=== PATIENT | female | born 1940 | race Caucasian/White ===

== ENCOUNTER → 2023-06-26 07:41 | Outpatient (REF) | payer MEDICARE, OTHER, SELFPAY ==
[2023-06-26 09:52] LABS: % Basophils 0.6 % (0-2); % Eosinophils 3.5 % (0-6); % Immature Granulocytes 0.4 % (0-0.5); % Lymphocytes 37.8 % (20.5-51.1); % Monocytes 7.1 % (1.7-9.3); % Neutrophils 50.6 % (42.2-75.2); Absolute Basophils 0.1 10^3/uL (0-0.2); Absolute Eosinophils 0.3 10^3/uL (0-0.7); Absolute Monocytes 0.6 10^3/uL (0.1-0.6); Hematocrit 38.9 % (37.0-47.0); Hemoglobin 12.5 g/dL (12.0-16.0); Mean Corp Hgb Conc. 32.1 g/dL (33.0-37.0); Mean Corpuscular Hgb 28.3 pg (27.0-31.0); Mean Platelet Volume 10.8 fL (7.4-10.4); Nucleated Red Blood Cells % 0 %; Platelet Count 280 10^3/uL (130-400); Red Blood Cell Count 4.42 10^6/uL (4.20-5.40); Red Cell Dist. Width 13.9 % (11.5-14.5); White Blood Cell Count 7.8 10^3/uL (4.8-10.8)
[2023-06-26 10:18] LABS: ALT (SGPT) 15 U/L (0-35); AST (SGOT) 20 U/L (14-36); Albumin 3.8 g/dl (3.5-5.0); Alkaline Phosphatase 77 U/L (38-126); Blood Urea Nitrogen 24 mg/dl (7-17); Calcium 9.4 mg/dl (8.4-10.2); Carbon Dioxide 25 mmol/L (22-30); Chloride 107 mmol/L (98-107); Glucose 102 mg/dl (70-99); HDL Cholesterol 50 mg/dl; LDL Cholesterol, Calculated 84 mg/dl; Potassium 4.4 mmol/L (3.5-5.1); Sodium 137 mmol/L (135-145); Total Bilirubin 0.5 mg/dl (0.2-1.3); Total Cholesterol 157 mg/dl (50-199); Total Protein 6.4 g/dl (6.3-8.2); Triglyceride 119 mg/dl (10-149); Very Low Density Lipoprotein 23 mg/dl (0-30); eGFR > 60.00
[2023-06-26 10:24] LABS: NT-proBNP 53.3 pg/ml
[2023-06-26 10:44] LABS: TSH Reflex To Free T4 2.85 uIU/ml (0.47-4.68)
[2023-06-26 11:58] LABS: Glycohemoglobin (HgbA1c) 5.8 % (4.0-5.6)
== END ==
LOC: HWLAB 07:41
PROVIDERS: ATTENDING PHYSICIAN Internal Medicine Cardiovascular Disease; FAMILY PHYSICIAN Internal Medicine
DX: I10 Essential (primary) hypertension (principal); I25.9 Chronic ischemic heart disease, unspecified; E78.00 Pure hypercholesterolemia, unspecified
CPT/HCPCS: 36415; 80053; 80061; 83036; 83735; 83880; 84443; 85025

== ENCOUNTER → 2023-08-10 07:15 | Outpatient (REF) | payer MEDICARE, OTHER, SELFPAY | LOC: MRI 3T 07:15 | PROVIDERS: ATTENDING PHYSICIAN Specialist; FAMILY PHYSICIAN Internal Medicine | DX: G93.41 Metabolic encephalopathy (principal); U09.9 Post COVID-19 condition, unspecified | CPT/HCPCS: 70551 ==

== ENCOUNTER 2023-08-31 00:23 | Emergency (ER) | payer MEDICARE, OTHER, SELFPAY ==
[2023-08-31] VITALS (8 sets, daily range): BP systolic 107–158; BP diastolic 67–132; PULSE 88–96; BMI 25.4
--- NOTE | 2023-08-31 01:10 | ED.GENMED ---
History of Present Illness
<PATRICIA Castillo - Last Filed: 08/31/23 01:41>
General
Chief Complaint: Fainting/Passed Out
Source: patient and spouse
Exam Limitations: none
Time Seen by Provider: 08/31/23 00:39
Travel History
Have you had any contact with someone who has COVID-19?: No
Do you have any symptoms of coronavirus? Fever > 100 degrees, chills, cough, shortness of breath, sore throat, loss of taste or smell, muscle aches, or headache?: No
History of Present Illness
History of Present Illness:
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 She reports she had three episodes of loose stools before her fall. She then
went upstairs to go to the bathroom. Her states he found her on the floor after hearing a thud. Pt does not believe she hit her head. She states she fell backwards. On Monday, patient started to experience nausea from what she thought was
her medications, Acyclovir and Prednisone. Pt's doctor told her to stop the medications. Pt's states he also had her stop the Plavix.
Currently on Losartan, Simvastatin, and Tamsulosin (bladder drop).
Denies CP and SOB. Denies eye pain or changes in visual acuity.
Past History
<PATRICIA Castillo - Last Filed: 08/31/23 01:41>
Past History
ED Past Medical History: HTN, Hypercholesterolemia and Other (Osteoporosis)
ED Past Surgical History: Cholecystectomy, Gynecological and Tonsilectomy
Social History
Tobacco: Non-smoker
Alcohol: None
Personal:
Living: with family
Review of Systems
<PATRICIA Castillo - Last Filed: 08/31/23 01:41>
Review of Systems
Constitutional: Reports no symptoms
EENT: Reports no symptoms
Respiratory: Reports no symptoms
Cardiac: Reports no symptoms
ABD/GI: Reports no symptoms
: Reports no symptoms
Skin: Reports rash (Shingles outbreak)
Phy Exam
<Lyly Cortes [facility] Last Filed: 08/31/23 01:41>
Physical Exam
Physical Exam:
Normal S1 and S2
Breath sounds are clear and equal B/L
Shingles rash located on the upper back, left side, and underneath her left breast
General Physical Exam
General Presentation: well appearing
General age: appears stated age
General Skin: warm
General Habitus: normal
General Mental: alert
Cardiovascular Exam
Cardiovascular Exam: regular rate/rhythm
Pulmonary Exam
Pulmonary Exam: lungs clear and no respiratory distress
Neurological Exam
Neurological Exam: alert
Skin Exam
Skin Exam: redness
Course
<Lyly Cortes [facility] Last Filed: 08/31/23 01:41>
Orders/Labs/Results
Orders:
Orders
08/31/23 00:31
Electrocardiogram (*1) Urgent
Reason for Study: Syncope
EKG- Treatment ONCE
08/31/23 00:55
Complete Blood Count/With Diff Urgent
Comprehensive Metabolic Panel Urgent
Magnesium Urgent
Troponin I Urgent
08/31/23 01:15
CT Head W/o Iv Contrast Urgent
Comment:
Reason For Exam: syncope-(?)head injury, on plavix
08/31/23 01:42
KCl 20 Meq/0.9%Sodchl 1000 ml [NSS with KCL 20 MEQ] 20 meq in 1,000 ml IV 500 mls/hr
Abnormal Lab Results
08/31/23
00:55
WBC 11.4 H 10^3/uL
(4.8-10.8)
Absolute Neuts (auto) 7.0 H 10^3/uL
(1.4-6.5)
Absolute Monos (auto) 0.9 H 10^3/uL
(0.1-0.6)
Potassium 3.3 L mmol/L
(3.5-5.1)
BUN 20 H mg/dl
(7-17)
Creatinine 1.2 H mg/dL
(0.6-1.0)
Glucose 118 H mg/dl
(70-99)
08/31/23 00:55
08/31/23 00:55
Vital Signs
Initial and Last Documented VS:
Initial Vital Signs
Temp Pulse Resp BP Pulse Ox
98.1 F 77 18 107/67 99
08/31/23 00:26 08/31/23 00:26 08/31/23 00:26 08/31/23 00:26 08/31/23 00:26
Last Documented Vital Signs
Temp Pulse Resp BP Pulse Ox
98.1 F 96 29 146/76 98
08/31/23 00:26 08/31/23 04:15 08/31/23 04:15 08/31/23 04:15 08/31/23 04:13
<Anu Gandara, DO - Last Filed: 08/31/23 05:06>
Orders/Labs/Results
Orders:
Orders
08/31/23 00:31
Electrocardiogram (*1) Urgent
Reason for Study: Syncope
EKG- Treatment ONCE
08/31/23 00:55
Complete Blood Count/With Diff Urgent
Comprehensive Metabolic Panel Urgent
Magnesium Urgent
Troponin I Urgent
08/31/23 01:15
CT Head W/o Iv Contrast Urgent
Comment:
Reason For Exam: syncope-(?)head injury, on plavix
08/31/23 01:42
KCl 20 Meq/0.9%Sodchl 1000 ml [NSS with KCL 20 MEQ] 20 meq in 1,000 ml IV 500 mls/hr
Abnormal Lab Results
08/31/23
00:55
WBC 11.4 H 10^3/uL
(4.8-10.8)
Absolute Neuts (auto) 7.0 H 10^3/uL
(1.4-6.5)
Absolute Monos (auto) 0.9 H 10^3/uL
(0.1-0.6)
Potassium 3.3 L mmol/L
(3.5-5.1)
BUN 20 H mg/dl
(7-17)
Creatinine 1.2 H mg/dL
(0.6-1.0)
Glucose 118 H mg/dl
(70-99)
08/31/23 00:55
08/31/23 00:55
Vital Signs
Initial and Last Documented VS:
Initial Vital Signs
Temp Pulse Resp BP Pulse Ox
98.1 F 77 18 107/67 99
08/31/23 00:26 08/31/23 00:26 08/31/23 00:26 08/31/23 00:26 08/31/23 00:26
Last Documented Vital Signs
Temp Pulse Resp BP Pulse Ox
98.1 F 96 29 146/76 98
08/31/23 00:26 08/31/23 04:15 08/31/23 04:15 08/31/23 04:15 08/31/23 04:13
Joycelt;PATRICIA Castillo - Last Filed: 08/31/23 01:41>
MDM/Problems Addressed
Differential Diagnosis Includes:
Concussion, Orthostatic hypotension, Syncope (Vasovagal)
MDM/Problems Addressed:
Fall at 10:30 p.m. on 08/29
Chronic conditions affecting care: HTN
<PATRICIA Castillo - Last Filed: 08/31/23 01:41>
*Critical Care Note
Total Time (30-74mins, 75-104mins- exclusive of procedures): Not Applicable
<Anu Gandara DO - Last Filed: 08/31/23 05:06>
*Radiology
Radiology exam reviewed: radiology read reviewed
*Pulse Oximetry
Patient hypoxic: no
*EKG
Interpreted by ED Provider?: Yes
Interpretation: normal
Comparison EKG: no changes (Unchanged from previous August 2022)
Rate: normal
Rhythm: sinus
Paicines: left axis deviation
Interval: long QT (Borderline long QT)
QRS Pattern: normal QRS
Ischemia: no ischemia
*Radiator Mechanic Interpretation
Rate: normal
Interpretation: normal
Rhythm: sinus
ED Attending Note
<PATRICIA Castillo - Last Filed: 08/31/23 01:41>
-
Portions of this chart may have been created with voice recognition software.� Occasional wrong word or��sound alike� substitutions may have occurred due to the inherent limitations of voice recognition software.
<Anu Gandara DO - Last Filed: 08/31/23 05:06>
ED Attending Note
Patient seen and examined by attending physician: Yes
I performed the substantive portion of visit, reviewed & personally made and approve the management plan that is documented in note by myself or JNUI.: Yes
I performed a history and physical exam of patient and discussed management with resident, I reviewed resident's note and agree with documented findings and plan of care.: Yes
ED Attending Note:
This is an 82-year-old woman who resides at home with her . She was diagnosed with shingles left scapular truncal region last Mignon, Malini 4 and was started on Valtrex and prednisone at that time. On August 25 however she developed
abdominal discomfort, nausea and thus Valtrex and prednisone were discontinued on that day. She continued with some nausea and has had poor oral intake over the past several days but no vomiting. Discomfort from shingles has markedly improved.
Tonight however she passed 3 nonbloody loose stools and after the last episode she admits to feeling lightheaded, tunnel vision and proceeded to pass out in the bathroom. The heard a thud and upon investigating found his lying on the
bathroom floor, awake but mildly confused. Confusion quickly abated and he brought her to the ED for further evaluation. She denies injury, denies headache, denies chest pain or palpitations, denies neck nor back pain. No further episodes of
diarrhea and currently denies abdominal pain and no further nausea as well.
She is chronically maintained on Plavix. stopped the Plavix temporarily on Monday along with stopping Valtrex and prednisone due to her upset stomach.
GENERAL: 82-year-old woman appears somewhat younger than stated age, bright and alert, pleasant, appears in no acute distress. is accompanying.
EYE: Head is normocephalic, atraumatic, pupils equal and reactive. anicteric
NECK: Supple, nontender, no meningismus, no midline bony tenderness, no significant adenopathy.
ENT: posterior pharynx is clear, oral mucosa is minimally dry. TM clear b/l, nares patent.
CARDIAC: Regular rate and rhythm. no murmur. No chest wall tenderness.
LUNGS: Clear breath sounds bilaterally, no acute respiratory distress, no wheezes/rales/rhonchi
ABDOMEN: Soft, nondistended, without focal tenderness, no r/g, no cvat. normoactive BS.
NEUROLOGICAL: Alert and oriented x3, no focal neuro deficits.
SKIN: Warm and dry, normal color, skin intact. There is a minimally erythematous dry, minimally crusted rash left lateral scapular region.
MUSCULOSKELETAL: No C/C/E. peripheral pulses are full and equal b/l. No palpable tenderness.
PSYCH: Normal and appropriate interaction.
History and exam most consistent with vasovagal syncope. With poor oral intake over the past several days concern for dehydration/acute kidney injury, electrolyte abnormality.
Other consideration is cardiac arrhythmia.
As patient suffered syncopal event, concern for occult head injury, maintained on Plavix, thus will check CT of the head.
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
EKG shows normal sinus rhythm, left axis deviation, borderline long QT, overall similar and unchanged from previous EKG August 2022.
Labs show mildly elevated white blood cell count of 11.4, normal H&H, moderate dehydration with creatinine of 1.2 which has trended up from previous of 0.9 just 2 months ago. Mild hypokalemia with potassium of 3.3. Troponin is negative.
Will initiate IV normal saline with IV potassium.
Will encourage oral fluids.
After IV fluids infused will plan for orthostatic vital signs.
CT of the head is unremarkable.
Monitor continues to show normal sinus rhythm without ectopy nor arrhythmia.
08/31/2023 0503 AM
Patient continues to feel well.
She has had no return of diarrhea, no abdominal pain, no nausea and tolerating oral fluids.
Orthostatic vital signs are negative.
Discharged home with recommendation to stay well-hydrated on a daily basis. Limit diet to clear liquids, bland foods.
Prompt follow-up with PCP for recheck.
Discharge Plan
Departure
Patient Disposition: Home (Routine Discharge)
Date of Disposition: 08/31/23
Time of Disposition: 05:01
Patient with high blood pressure during this ER visit?: No
Condition: Good
Discharge Problem:
Syncope, vasovagal, Acute dehydration, Acute hypokalemia
Instructions: Syncope (Fainting) (DC), Diarrhea, Adult ED, Clear Liquid Diet
Prescriptions:
No Action
losartan 50 MG tablet
50 mg PO DAILY
simvastatin 20 MG tablet
20 mg PO DAILY
aspirin 81 MG tablet,chewable
1 tab PO DAILY
Referrals:
UNKNOWN - PT DOES,NOT KNOW [Family Provider] -
Narendra Vences, DO [Non-Admitting Privileges] - Call in 1-3 days for appt
Interventions
Interventions:
*Risk Screen - Suicide Last Done: 08/31/23 00:52
*General Assessment Last Done: 08/31/23 00:26
*Neglect/Abuse Screening Last Done: 08/31/23 00:52
ED- Fall Risk Assessment Last Done: 08/31/23 00:52
*ED COVID-19 Vaccine History Last Done: 08/31/23 00:55
ED- Cardiac Assessment Last Done: 08/31/23 00:52
ED- Neurological Assessment Last Done: 08/31/23 00:52
Discharge Date and Time
Print Language: [place]
[2023-08-31 01:16] LABS: % Basophils 0.4 % (0-2); % Eosinophils 1.8 % (0-6); % Immature Granulocytes 0.4 % (0-0.5); % Lymphocytes 28.1 % (20.5-51.1); % Monocytes 7.8 % (1.7-9.3); % Neutrophils 61.5 % (42.2-75.2); Absolute Eosinophils 0.2 10^3/uL (0-0.7); Absolute Lymphocytes 3.2 10^3/uL (1.2-3.4); Absolute Monocytes 0.9 10^3/uL (0.1-0.6); Hemoglobin 12.9 g/dL (12.0-16.0); Mean Corp Hgb Conc. 33.9 g/dL (33.0-37.0); Mean Corpuscular Hgb 28.5 pg (27.0-31.0); Mean Corpuscular Volume 83.9 fL (81.0-99.0); Nucleated Red Blood Cells % 0 %; Platelet Count 346 10^3/uL (130-400); Red Blood Cell Count 4.53 10^6/uL (4.20-5.40); Red Cell Dist. Width 14.4 % (11.5-14.5); White Blood Cell Count 11.4 10^3/uL (4.8-10.8)
[2023-08-31 01:31] LABS: ALT (SGPT) 17 U/L (0-35); AST (SGOT) 21 U/L (14-36); Albumin 3.6 g/dl (3.5-5.0); Alkaline Phosphatase 97 U/L (38-126); Blood Urea Nitrogen 20 mg/dl (7-17); Calcium 9.3 mg/dl (8.4-10.2); Carbon Dioxide 26 mmol/L (22-30); Chloride 104 mmol/L (98-107); Estimated Creatinine Clearance 27 ml/min; Glucose 118 mg/dl (70-99); Magnesium 2.1 mg/dl (1.6-2.3); Potassium 3.3 mmol/L (3.5-5.1); Sodium 139 mmol/L (135-145); Total Bilirubin 0.5 mg/dl (0.2-1.3); Total Protein 6.5 g/dl (6.3-8.2); eGFR 45.76
[2023-08-31 01:45] LABS: Troponin I < 0.012 ng/ml
[2023-08-31] MEDS: NSS with KCL 20 MEQ 1000 IV (02:07)
== END 2023-08-31 05:14 | disposition home or self-care (01) ==
LOC: EMR 00:23
PROVIDERS: EMERGENCY PHYSICIAN Emergency Medicine
DX: R55 Syncope and collapse (principal); E86.0 Dehydration; E87.6 Hypokalemia; I10 Essential (primary) hypertension; E78.00 Pure hypercholesterolemia, unspecified; M81.0 Age-related osteoporosis without current pathological fracture; Z79.02 Long term (current) use of antithrombotics/antiplatelets; Z86.16 Personal history of COVID-19; Z90.49 Acquired absence of other specified parts of digestive tract
CPT/HCPCS: 99284; 70450; 80053; 83735; 84484; 85025; 93005

== ENCOUNTER → 2023-11-17 17:16 | Emergency (ER) | payer MEDICARE, OTHER, SELFPAY ==
[2023-11-17] VITALS (7 sets, daily range): BP systolic 143–165; BP diastolic 65–76; BMI 27.7
[2023-11-17 18:16] LABS: % Basophils 0.6 % (0-2); % Eosinophils 1.2 % (0-6); % Immature Granulocytes 0.7 % (0-0.5); % Lymphocytes 24.9 % (20.5-51.1); % Monocytes 6.2 % (1.7-9.3); % Neutrophils 66.4 % (42.2-75.2); Absolute Basophils 0.1 10^3/uL (0-0.2); Absolute Eosinophils 0.1 10^3/uL (0-0.7); Absolute Immature Granulocytes 0.1 10^3/uL (0-0.05); Absolute Lymphocytes 2.1 10^3/uL (1.2-3.4); Absolute Monocytes 0.5 10^3/uL (0.1-0.6); Absolute Neutrophils 5.6 10^3/uL (1.4-6.5); Hematocrit 37.8 % (37.0-47.0); Hemoglobin 12.6 g/dL (12.0-16.0); Mean Corp Hgb Conc. 33.3 g/dL (33.0-37.0); Mean Corpuscular Hgb 28.9 pg (27.0-31.0); Mean Corpuscular Volume 86.7 fL (81.0-99.0); Mean Platelet Volume 10.5 fL (7.4-10.4); Nucleated Red Blood Cells % 0 %; Platelet Count 272 10^3/uL (130-400); Red Blood Cell Count 4.36 10^6/uL (4.20-5.40); Red Cell Dist. Width 14.4 % (11.5-14.5); White Blood Cell Count 8.4 10^3/uL (4.8-10.8)
[2023-11-17 18:22] LABS: ALT (SGPT) 16 U/L (0-35); AST (SGOT) 30 U/L (14-36); Albumin 4.2 g/dl (3.5-5.0); Alkaline Phosphatase 82 U/L (38-126); Blood Urea Nitrogen 17 mg/dl (7-17); Calcium 9.3 mg/dl (8.4-10.2); Carbon Dioxide 25 mmol/L (22-30); Chloride 106 mmol/L (98-107); Glucose 117 mg/dl (70-99); Potassium 4.1 mmol/L (3.5-5.1); Sodium 142 mmol/L (135-145); Total Bilirubin 0.6 mg/dl (0.2-1.3); Total Protein 6.7 g/dl (6.3-8.2); eGFR > 60.00
[2023-11-17 18:28] LABS: Troponin I < 0.012 ng/ml
--- NOTE | 2023-11-17 18:34 | ED.GENMED ---
History of Present Illness
General
Chief Complaint: Fall
Source: patient and spouse
Time Seen by Provider: 11/17/23 18:17
History of Present Illness
History of Present Illness:
This patient is an 83-year-old female who has had some recent memory issues. She was started on Plavix after some MRI findings suggesting the possibility of TIA/stroke. Today, she had a fall, landing backwards and causing a laceration to the
posterior occiput. She does not really recall the fall but she denies having any dyspnea, palpitations, chest pain, headache, dizziness, fever, chills, nausea, vomiting. Since the fall, she notes mild lower back discomfort. She is unaware when
her last tetanus was. Her who is in the house at the time said that he heard a loud noise and when he ran over to her she was on the floor, awake but 'foggy'. As a result he presumed that she lost consciousness but did not see her
unconscious. Patient has little memory of the event.
Past History
Past History
ED Past Medical History: HTN, Hypercholesterolemia and Other (Osteoporosis)
ED Past Surgical History: Cholecystectomy, Gynecological and Tonsilectomy
Social History
Tobacco: Non-smoker
Alcohol: None
Personal:
Living: with family
Phy Exam
Physical Exam
Physical Exam:
GENERAL: Alert , in no apparent distress
EYE: pupils equal and reactive, no nystagmus, no photophobia, EOMI
NECK: Supple, no significant adenopathy, no midline tenderness.
ENT: o/p clr, mmm, no signs of head or facial injury with the exception of posterior occiput laceration, no gomez, no raccoon.
CARDIAC: Regular rate and rhythm .
LUNGS: Equal breath sounds bilaterally, no acute respiratory distress, no rales or rhonchi, occasional wheezing noted
ABDOMEN: Soft, without focal tenderness, no r/g, no cvat
NEUROLOGICAL: Alert and oriented, no focal neuro deficits, [id number] normal, cranial nerves II through XII intact, motor 5 out of 5, sensory
SKIN: Warm and dry, skin intact with the exception of superficial linear laceration noted the posterior occiput measuring approximately 3 cm.
MUSCULOSKELETAL: No edema, well perfused.
PSYCH: Normal and appropriate interaction.
Course
Orders/Labs/Results
Orders:
Orders
11/17/23 17:35
Electrocardiogram (*1) Urgent
Reason for Study: Vertigo / Dizzy
CT Head W/o Iv Contrast Urgent
Comment:
Reason For Exam: fall
EKG- Treatment ONCE
11/17/23 17:44
Complete Blood Count/With Diff Urgent
Comprehensive Metabolic Panel Urgent
Troponin I Urgent
11/17/23 18:34
Lidocaine/Epinephrine/Tetracai [Let Topical Anesthetic Gel] 3 ml TOPICAL NOW STA
Tetanus/Diphth/Acelpertussis [Adacel] 0.5 ml IM .ONCE ONE
11/17/23 18:37
LS Spine Complete, 4 View [CR Lumbar Spine Comp Min 4 Vw*] Urgent
Comment:
Reason For Exam: fall
11/17/23 20:03
Ribs, Right 3 View W/PA Chest [CR Ribs-right 3 Vw W/pa Chest*] Urgent
Comment:
Reason For Exam: fall
11/17/23 20:10
Oxycodone/Acetaminophen [Percocet 5/325] 1 tablet .ROUTE .STK-MED ONE
11/17/23 20:13
Oxycodone/Acetaminophen [Percocet 5/325] 1 tablet PO NOW STA
Oxycodone/Acetaminophen [Percocet 5/325] 1 tablet PO NOW STA
Abnormal Lab Results
11/17/23
17:44
MPV 10.5 H fL
(7.4-10.4)
Abs Immat Gran (auto) 0.1 H 10^3/uL
(0-0.05)
Immature Gran % 0.7 H %
(0-0.5)
Glucose 117 H mg/dl
(70-99)
11/17/23 17:44
11/17/23 17:44
Vital Signs
Initial and Last Documented VS:
Initial Vital Signs
Temp Pulse Resp BP Pulse Ox
98.1 F 68 16 143/75 99
11/17/23 17:32 11/17/23 17:32 11/17/23 17:32 11/17/23 17:32 11/17/23 17:32
Last Documented Vital Signs
Temp Pulse Resp BP Pulse Ox
98.2 F 72 20 149/65 96
11/17/23 19:15 11/17/23 21:55 11/17/23 21:55 11/17/23 21:55 11/17/23 21:55
Procedures
Laceration Closure
Head:
Status of Wound: clean
Size of Wound in cm: 3
Description of Wound Edges: sharp
Preparation: cleaned with saline
Anesthesia: 1% Lidocaine with epi and Topical-LET
Revision/Debridement: routine- no revision
Wound exploration: explored to base- no FB
Type of Closure: single layer closure
Skin Closure Material: skin angelique
Number of sutures: 5
*Critical Care Note
Total Time (30-74mins, 75-104mins- exclusive of procedures): Not Applicable
Update Note
Update Note:
Patient presents to the Emergency Department with
Number and Complexity of Problems Addressed at the Encounter
� Chronic conditions affecting care:
� Acute Exacerbation and/or Progression of Chronic Illness:
� Differential Diagnosis includes:
Amount and/or Complexity of Data to be Reviewed and Analyzed
� I performed an independent evaluation of and my interpretation is:
EKG: Read by me, normal sinus rhythm, normal rate, normal axis, no ischemia
CT:There are no acute intracranial abnormalities.
There is mild diffuse cortical atrophy with mild nonspecific white matter changes as described above.
Xrays: Chest x-ray no fracture noted no pneumothorax. Lumbar spine L1 compression fracture noted
Laboratory Studies: Generally unremarkable
Other:
� Review of other/old records reveals: mri july 2023 Moderate diffuse cerebral and cerebellar volume loss.
2. 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
3. 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
4. 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
� Clinical information was obtained by an independent historian:
� Prescriptions/Medications Considered but not given:
� Further testing considered but not performed:
Risk of Complications and/or Morbidity or Mortality of Patient Management
� Social determinants of health affecting care:
� Discussion with other providers (PCP, Hospitalists, Consultants, etc):
� Escalation of care including admission/observation vs risk of discharge considered: Pt now reporting pain R post costal area, ttp, no bruising, no crepitus. Xray ordered. In meantime, wound cleaned/ irrigated, anesthetized,
angelique placed.
9:15 PM patient smiling, no new complaints, feels comfortable going home pain well-managed. We will ambulate patient in the emergency department. Discussed with her and her importance of follow-up, her compression fracture noted on x-ray
here, staple removal, etc.
ED Attending Note
-
Portions of this chart may have been created with voice recognition software.� Occasional wrong word or��sound alike� substitutions may have occurred due to the inherent limitations of voice recognition software.
Discharge Plan
Departure
Patient Disposition: Home (Routine Discharge)
Date of Disposition: 11/17/23
Time of Disposition: 21:16
Patient with high blood pressure during this ER visit?: Yes
Condition: Good
Discharge Problem:
Laceration, Fall
Instructions: Concussion, Adult (DC), Laceration Repair With [place] (DC), BLOOD PRESSURE
Prescriptions:
No Action
losartan 50 MG tablet
50 mg PO DAILY
simvastatin 20 MG tablet
20 mg PO DAILY
Plavix
75 mg PO DAILY
Referrals:
UNKNOWN - PT DOES,NOT KNOW [Unknown Provider] -
Activity Restrictions/Additional Instructions:
PLEASE SEE YOUR DOCTOR IN 7-10 DAYS FOR STAPLE REMOVAL. IF YOU DEVELOP SEVERE HEADACHE, VOMITING, FEVER, CHILLS, TROUBLE BREATHING, DIZZINESS, OR OTHER WORRISOME SIGNS, GO TO THE ER IMMEDIATELY!
Interventions
Interventions:
*Risk Screen - Suicide Last Done: 11/17/23 17:32
*General Assessment Last Done: 11/17/23 17:32
*Neglect/Abuse Screening Last Done: 11/17/23 17:32
ED- Fall Risk Assessment Last Done: 11/17/23 19:09
*ED COVID-19 Vaccine History Last Done: 11/17/23 17:32
ED-Musculoskeletal Assessment Last Done: 11/17/23 19:09
ED- Neurological Assessment Last Done: 11/17/23 19:09
ED-Skin Assessment Last Done: 11/17/23 19:12
Discharge Date and Time
Print Language: [place]
[2023-11-17] MEDS: ADACEL 0.5 ML IM (19:17)
[2023-11-17] MEDS: LET TOPICAL ANESTHETIC GEL 3 ML TOPICAL (19:20)
[2023-11-17] MEDS: PERCOCET 5/325 1 TABLET PO (20:14)
== END | disposition home or self-care (01) ==
LOC: EMR 17:16
PROVIDERS: Physician Assistant; EMERGENCY PHYSICIAN Emergency Medicine; FAMILY PHYSICIAN Internal Medicine
DX: S01.81XA Laceration without foreign body of other part of head, initial encounter (principal); W19.XXXA Unspecified fall, initial encounter; Z23 Encounter for immunization; I10 Essential (primary) hypertension; E78.00 Pure hypercholesterolemia, unspecified; M81.0 Age-related osteoporosis without current pathological fracture; Z79.02 Long term (current) use of antithrombotics/antiplatelets
CPT/HCPCS: 99284; 12013; 90471; 70450; 71101; 72110; 80053; 84484; 85025; 90715; 93005

== ENCOUNTER → 2024-02-21 07:40 | Outpatient (REF) | payer MEDICARE, OTHER, SELFPAY ==
[2024-02-21 09:42] LABS: % Basophils 0.7 % (0-2); % Eosinophils 1.5 % (0-6); % Immature Granulocytes 0.3 % (0-0.5); % Lymphocytes 28.2 % (20.5-51.1); % Monocytes 6.3 % (1.7-9.3); Absolute Basophils 0.1 10^3/uL (0-0.2); Absolute Eosinophils 0.1 10^3/uL (0-0.7); Absolute Lymphocytes 2.4 10^3/uL (1.2-3.4); Absolute Monocytes 0.5 10^3/uL (0.1-0.6); Absolute Neutrophils 5.4 10^3/uL (1.4-6.5); Hematocrit 39.6 % (37.0-47.0); Hemoglobin 12.7 g/dL (12.0-16.0); Mean Corp Hgb Conc. 32.1 g/dL (33.0-37.0); Mean Corpuscular Hgb 28.7 pg (27.0-31.0); Mean Corpuscular Volume 89.4 fL (81.0-99.0); Mean Platelet Volume 10.8 fL (7.4-10.4); Nucleated Red Blood Cells % 0 %; Platelet Count 269 10^3/uL (130-400); Red Blood Cell Count 4.43 10^6/uL (4.20-5.40); Red Cell Dist. Width 13.7 % (11.5-14.5); White Blood Cell Count 8.6 10^3/uL (4.8-10.8)
[2024-02-21 10:01] LABS: TSH Reflex To Free T4 6.05 uIU/ml (0.47-4.68)
[2024-02-21 10:06] LABS: ALT (SGPT) 14 U/L (0-35); AST (SGOT) 20 U/L (14-36); Albumin 3.9 g/dl (3.5-5.0); Alkaline Phosphatase 72 U/L (38-126); Blood Urea Nitrogen 18 mg/dl (7-17); Calcium 9.2 mg/dl (8.4-10.2); Carbon Dioxide 28 mmol/L (22-30); Chloride 106 mmol/L (98-107); Glucose 101 mg/dl (70-99); HDL Cholesterol 53 mg/dl; LDL Cholesterol, Calculated 79 mg/dl; Magnesium 2.2 mg/dl (1.6-2.3); Potassium 4.1 mmol/L (3.5-5.1); Sodium 143 mmol/L (135-145); Total Bilirubin 0.5 mg/dl (0.2-1.3); Total Cholesterol 153 mg/dl (50-199); Total Protein 6.4 g/dl (6.3-8.2); Triglyceride 105 mg/dl (10-149); Very Low Density Lipoprotein 21 mg/dl (0-30); eGFR > 60.00
[2024-02-21 10:32] LABS: Free T4 0.79 ng/dl (0.78-2.19)
[2024-02-21 11:56] LABS: Glycohemoglobin (HgbA1c) 5.8 % (4.0-5.6)
== END ==
LOC: HWLAB 07:40
PROVIDERS: ATTENDING PHYSICIAN Internal Medicine Cardiovascular Disease; FAMILY PHYSICIAN Internal Medicine
DX: R53.83 Other fatigue (principal); E78.5 Hyperlipidemia, unspecified; E74.39 Other disorders of intestinal carbohydrate absorption; E03.9 Hypothyroidism, unspecified; R73.03 Prediabetes
CPT/HCPCS: 36415; 80053; 80061; 83036; 83735; 84439; 84443; 85025

== ENCOUNTER → 2024-05-15 10:30 | Outpatient (REF) | payer MEDICARE, OTHER, SELFPAY | LOC: HWRAD 10:30 | PROVIDERS: ATTENDING PHYSICIAN Nurse Practitioner Family; FAMILY PHYSICIAN Internal Medicine | DX: R05.1 Acute cough (principal); R09.89 Other specified symptoms and signs involving the circulatory and respiratory systems | CPT/HCPCS: 71046 ==

== ENCOUNTER 2024-05-15 20:15 | Observation (INO) | payer MEDICARE, OTHER, SELFPAY ==
[2024-05-15] VITALS (7 sets, daily range): BP systolic 111–167; BP diastolic 49–83; BMI 25.8
--- NOTE | 2024-05-15 15:53 | ED.GENMED ---
ED Provider Triage
<Stephen Koch PA-C - Last Filed: 05/15/24 15:54>
-
Patient seen by provider in Triage?: Seen in Triage
Attestation: A medical screening examination has been initiated by a qualified medical provider. Based on the assessment performed at this time, it has been determined that an emergent medical condition may exist and the patient has been informed
that further medical evaluation and possible additional diagnostic testing may be needed.
HPI: 83-year-old female presents with complaints of generalized weakness. She was tested positive for influenza at her family doctor's office 6 days ago. She was also started on Zithromax at that point. She noted increased cough. Family doctor
sent her x-ray which she had as an outpatient today. Chest x-ray shows possible left lower lobe pneumonia. Family doctor also added and cefuroxime which she took her first dose of this morning then vomited. Currently her complaint is generalized
weakness. She denies abdominal pain. X-ray from this morning is read as possible left lower lobe pneumonia. Labs ordered
GENERAL: Alert , in no apparent distress
EYE: No visual abnormalities.
NECK: Trachea midline
ENT: No visible abnormalities.
LUNGS: No acute respiratory distress
NEUROLOGICAL: Alert and oriented
SKIN: Skin intact. No visible changes.
MUSCULOSKELETAL: Moving extremities normally
PSYCH: Normal and appropriate interaction.
This is a medical evaluation conducted in person to initiate diagnostic evaluation and provide initial therapeutics. Please see further documentation by the treating clinician.
History of Present Illness
<Stephen Koch PA-C - Last Filed: 05/15/24 15:54>
General
Chief Complaint: Weakness
Time Seen by Provider: 05/15/24 17:36
<Juve Vasquez DO - Last Filed: 05/15/24 18:21>
General
Source: patient, spouse and family
Exam Limitations: none
Nursing documentation reviewed up to this point in time: agreed with
History of Present Illness
History of Present Illness:
Agree with HPI by Lee Koch provider triage
Past History
<Stephen Koch PA-C - Last Filed: 05/15/24 15:54>
Past History
ED Past Medical History: HTN, Hypercholesterolemia and Other (Osteoporosis)
ED Past Surgical History: Cholecystectomy, Gynecological and Tonsilectomy
Social History
Tobacco: Non-smoker
Alcohol: None
Personal:
Living: with family
<Juve Vasquez DO - Last Filed: 05/15/24 18:21>
Past History
ED Past Medical History: Other (Dementia)
Review of Systems
<Juve Vasquez DO - Last Filed: 05/15/24 18:21>
Review of Systems
Allergies reviewed?: Yes
All Other Systems: Not applicable
Constitutional: Reports no symptoms
EENT: Reports no symptoms
Respiratory: Reports cough and trouble breathing
Cardiac: Reports no symptoms
ABD/GI: Reports vomiting and diarrhea
: Reports no symptoms
Musculoskeletal: Reports no symptoms
Skin: Reports no symptoms
Neurological: Reports no symptoms
Endocrine: Reports no symptoms
Hematologic/Lymphatic: Reports no symptoms
Psychiatric: Reports no symptoms
Phy Exam
<Juve Vasquez DO - Last Filed: 05/15/24 18:21>
Physical Exam
Physical Exam:
Physical Exam
General: Elderly, afebrile
Neck: supple. no meningeal signs. normal posterior pharynx
Heart: s1/s2 regular rate and rhythm, no murmur. equal radial
pulses.
HEENT: Pupils equal round reactive to light, EOMI
Lungs: Moderate cough, left-sided rhonchi
Abdomen: normal bowel sounds. not tender. no CVAT
Neuro: alert and oriented to person place. no focal neurological deficits cranial nerves II through XII intact
Skin: no rash
Psychiatric: well kept. interactive and cooperative
Extremities: no edema. no calf tenderness. negative homans. good distal pulses
Course
<Stephen Koch PA-C - Last Filed: 05/15/24 15:54>
Orders/Labs/Results
Orders:
Orders
05/15/24 15:51
Electrocardiogram (*1) Urgent
Reason for Study: Fatigue / Weakness
EKG- Treatment ONCE
05/15/24 16:08
Complete Blood Count/With Diff Urgent
Comprehensive Metabolic Panel Urgent
05/15/24 18:00
Azithromycin 500 mg/250 ml [Zithromax Infusion] 500 mg in 250 ml IV NOW
CefTRIAXone [Rocephin] 2,000 mg IV NOW STA
05/15/24 18:02
O2 Therapy [RESP] Urgent
Titrate/Wean O2 to maintain O2 sat greater than (%): 93
05/15/24 18:15
Lactic Acid Q4H
Comment: CANCEL 2nd LACTIC ACID IF 1st LACTIC ACID IS LESS THAN 2
Blood Culture Q30M
EILEEN Source: Blood/Venous
Specimen Description:
05/15/24 18:45
Blood Culture Q30M
EILEEN Source: Blood/Venous
Specimen Description:
05/15/24 22:15
Lactic Acid Q4H
Comment: CANCEL 2nd LACTIC ACID IF 1st LACTIC ACID IS LESS THAN 2
Abnormal Lab Results
05/15/24
16:08
MCHC 32.9 L g/dL
(33.0-37.0)
RDW 14.7 H %
(11.5-14.5)
Absolute Neuts (auto) 6.9 H 10^3/uL
(1.4-6.5)
Absolute Lymphs (auto) 0.8 L 10^3/uL
(1.2-3.4)
Absolute Monos (auto) 0.7 H 10^3/uL
(0.1-0.6)
Neutrophils % 81.1 H %
(42.2-75.2)
Lymphocytes % 9.7 L %
(20.5-51.1)
Sodium 134 L mmol/L
(135-145)
Glucose 115 H mg/dl
(70-99)
05/15/24 16:08
05/15/24 16:08
Vital Signs
Initial and Last Documented VS:
Initial Vital Signs
Temp Pulse Resp BP Pulse Ox
99.8 F 86 18 111/54 97
05/15/24 15:50 05/15/24 15:50 05/15/24 15:50 05/15/24 15:50 05/15/24 15:50
Last Documented Vital Signs
Temp Pulse Resp BP Pulse Ox
99.8 F 81 16 138/49 96
05/15/24 15:50 05/15/24 17:41 05/15/24 17:41 05/15/24 17:38 05/15/24 18:00
<Juve Vasquez, DO - Last Filed: 05/15/24 18:21>
Orders/Labs/Results
Orders:
Orders
05/15/24 15:51
Electrocardiogram (*1) Urgent
Reason for Study: Fatigue / Weakness
EKG- Treatment ONCE
05/15/24 16:08
Complete Blood Count/With Diff Urgent
Comprehensive Metabolic Panel Urgent
05/15/24 18:00
Azithromycin 500 mg/250 ml [Zithromax Infusion] 500 mg in 250 ml IV NOW
CefTRIAXone [Rocephin] 2,000 mg IV NOW STA
05/15/24 18:02
O2 Therapy [RESP] Urgent
Titrate/Wean O2 to maintain O2 sat greater than (%): 93
05/15/24 18:15
Lactic Acid Q4H
Comment: CANCEL 2nd LACTIC ACID IF 1st LACTIC ACID IS LESS THAN 2
Blood Culture Q30M
EILEEN Source: Blood/Venous
Specimen Description:
05/15/24 18:45
Blood Culture Q30M
EILEEN Source: Blood/Venous
Specimen Description:
05/15/24 22:15
Lactic Acid Q4H
Comment: CANCEL 2nd LACTIC ACID IF 1st LACTIC ACID IS LESS THAN 2
Abnormal Lab Results
05/15/24
16:08
MCHC 32.9 L g/dL
(33.0-37.0)
RDW 14.7 H %
(11.5-14.5)
Absolute Neuts (auto) 6.9 H 10^3/uL
(1.4-6.5)
Absolute Lymphs (auto) 0.8 L 10^3/uL
(1.2-3.4)
Absolute Monos (auto) 0.7 H 10^3/uL
(0.1-0.6)
Neutrophils % 81.1 H %
(42.2-75.2)
Lymphocytes % 9.7 L %
(20.5-51.1)
Sodium 134 L mmol/L
(135-145)
Glucose 115 H mg/dl
(70-99)
05/15/24 16:08
05/15/24 16:08
Vital Signs
Initial and Last Documented VS:
Initial Vital Signs
Temp Pulse Resp BP Pulse Ox
99.8 F 86 18 111/54 97
05/15/24 15:50 05/15/24 15:50 05/15/24 15:50 05/15/24 15:50 05/15/24 15:50
Last Documented Vital Signs
Temp Pulse Resp BP Pulse Ox
99.8 F 81 16 138/49 96
05/15/24 15:50 05/15/24 17:41 05/15/24 17:41 05/15/24 17:38 05/15/24 18:00
<Juve Vasquez, DO - Last Filed: 05/15/24 18:21>
MDM/Problems Addressed
Differential Diagnosis Includes:
Pneumonia, CHF
MDM/Problems Addressed:
83-year-old female with left-sided pneumonia, influenza 6 days ago. Oxygen saturation 88% on room air.
Chronic conditions affecting care: HTN and Neurological disorder (Dementia)
<Juve Vasquez, DO - Last Filed: 05/15/24 18:21>
*Radiology
Radiology exam reviewed: radiology read reviewed (Chest x-ray shows left lower lobe pneumonia)
*Pulse Oximetry
Patient hypoxic: yes
*EKG
Interpreted by ED Provider?: Yes
EKG Intrepretation Date: 05/15/24
EKG Intrepretation Time: 15:59
Interpretation: normal
Comparison EKG: no changes
Heart Rate: 83
Rate: normal
Rhythm: sinus
[place]: normal axis
Interval: normal interval
QRS Pattern: normal QRS
Ischemia: no ischemia
*Telephone Clerk [employer] Office Interpretation
Rate: normal
Interpretation: normal
Heart Rate: 80
Rhythm: sinus
*Critical Care Note
Total Time (30-74mins, 75-104mins- exclusive of procedures): Not Applicable
Data Reviewed
Further Testing Considered But Not Given:
ct chest not indicated
<Juve Vasquez, DO - Last Filed: 05/15/24 18:21>
Patient Management
Social determinants of health affecting care: Living situation and Strong social support
Discussion with other providers: Hospitalist
Escalation/DeEscalation of care consider admission/obs:
admit indicated
ED Attending Note
<Stephen Koch PA-C - Last Filed: 05/15/24 15:54>
-
Portions of this chart may have been created with voice recognition software.� Occasional wrong word or��sound alike� substitutions may have occurred due to the inherent limitations of voice recognition software.
Discharge Plan
Departure
Patient Disposition: Admit
Date of Disposition: 05/15/24
Time of Disposition: 18:20
Admit to: Telemetry
Presentation/result/management discussed w/ accepting MD/DO: Hospitalist
Patient with high blood pressure during this ER visit?: No
Condition: Fair
Discharge Problem:
Left lower lobe pneumonia, Hypoxia
Prescriptions:
No Action
losartan 50 MG tablet
50 mg PO DAILY
simvastatin 20 MG tablet
20 mg PO DAILY
Plavix
75 mg PO DAILY
Interventions
Interventions:
*Risk Screen - Suicide Last Done: 05/15/24 15:50
*General Assessment Last Done: 05/15/24 15:50
*Neglect/Abuse Screening Last Done: 05/15/24 17:42
ED- Fall Risk Assessment Last Done: 05/15/24 17:45
*ED COVID-19 Vaccine History Last Done: 05/15/24 15:50
ED- Cardiac Assessment Last Done: 05/15/24 17:44
ED- Neurological Assessment Last Done: 05/15/24 17:44
ED- Pulmonary Assessment Last Done: 05/15/24 17:44
Discharge Date and Time
Print Language: TAJIK
[2024-05-15 16:16] LABS: % Basophils 0.2 % (0-2); % Eosinophils 0.2 % (0-6); % Immature Granulocytes 0.5 % (0-0.5); % Lymphocytes 9.7 % (20.5-51.1); % Monocytes 8.3 % (1.7-9.3); % Neutrophils 81.1 % (42.2-75.2); Absolute Lymphocytes 0.8 10^3/uL (1.2-3.4); Absolute Monocytes 0.7 10^3/uL (0.1-0.6); Absolute Neutrophils 6.9 10^3/uL (1.4-6.5); Hematocrit 37.1 % (37.0-47.0); Hemoglobin 12.2 g/dL (12.0-16.0); Mean Corp Hgb Conc. 32.9 g/dL (33.0-37.0); Mean Corpuscular Hgb 28.6 pg (27.0-31.0); Mean Corpuscular Volume 87.1 fL (81.0-99.0); Mean Platelet Volume 10.3 fL (7.4-10.4); Nucleated Red Blood Cells % 0 %; Platelet Count 205 10^3/uL (130-400); Red Blood Cell Count 4.26 10^6/uL (4.20-5.40); Red Cell Dist. Width 14.7 % (11.5-14.5); White Blood Cell Count 8.5 10^3/uL (4.8-10.8)
[2024-05-15 16:32] LABS: ALT (SGPT) 25 U/L (0-35); AST (SGOT) 30 U/L (14-36); Alkaline Phosphatase 90 U/L (38-126); Blood Urea Nitrogen 13 mg/dl (7-17); Calcium 9.2 mg/dl (8.4-10.2); Carbon Dioxide 26 mmol/L (22-30); Chloride 101 mmol/L (98-107); Glucose 115 mg/dl (70-99); Potassium 3.7 mmol/L (3.5-5.1); Sodium 134 mmol/L (135-145); Total Bilirubin 0.8 mg/dl (0.2-1.3); Total Protein 6.3 g/dl (6.3-8.2); eGFR > 60.00
[2024-05-15] MEDS: ZITHROMAX INFUSION 250 IV (18:18)
[2024-05-15] MEDS: ROCEPHIN 2000 MG IV (18:18)
[2024-05-15 18:36] LABS: Lactic Acid 1.1 mmol/L (0.7-2.0)
--- NOTE | 2024-05-15 18:48 | HPS.HSE ---
Family Physician
-
Family Physician: Narendra Vences
Chief Complaint
-
generalized weakness
History of Present Illness
Patient is a 83-year-old female with past medical history significant for essential hypertension, hyperlipidemia, dementia, hypothyroidism, overactive bladder and osteoporosis who presented to [facility] ED for evaluation of generalized
weakness. Patient reports seeing primary doctor yesterday for cough that started 6 days ago and diagnosed with influenza. She reports being started started on Zithromax. Primary care sent her for chest x-ray out patient this morning. It was read as
'possible left lower lobe pneumonia.' Primary called and added Cefuroxime to the Zithromax. When patient took first dose of Cefuroxime this afternoon son stated approximately two hours later the patient had an episode of emesis, turned pale and was
minimally responsive for a short period of time so family brought for evaluation. Denies any shortness of breath, chest pain, nausea, constipation, diarrhea or urinary symptoms.
Medical History
Past Medical History
Past Medical History: Reports Other
Additional Past Medical History:
essential hypertension
hyperlipidemia
dementia
hypothyroidism
overactive bladder
osteoporosis
Past Surgical History: Reports Other
Additional Past Surgical History:
breast biopsy (benign 1985)
cholecystectomy
hysterectomy
tonsillectomy
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
Right distal radius fx repair
cataract extraction
Colpectomy with colpocleisis, cystoscopy , posterior colporrhaphy with perineoplasty, levator plication Dr. Coyle (09/26/22)
Social History
Tobacco: Non-smoker
Alcohol: None
Drug: None
Personal:
Living: With Family
Employment: Retired
Family History
Family History: Not pertinent
Allergies / Home Medications
Allergies reflects when Allergies were last updated in [facility].
Home Medications with original date entered in [facility]
Allergy/Medication List:
Allergies
Allergy/AdvReac Type Severity Reaction Status Date / Time
latex Allergy Rash Verified 05/15/24 15:54
Sulfa (Sulfonamide Allergy Itching Verified 05/15/24 15:54
Antibiotics)
Home Medications
losartan 50 mg tablet 50 mg PO DAILY 03/02/19
simvastatin 20 mg tablet 20 mg PO HS 03/02/19
clopidogrel 75 mg tablet 75 mg PO DAILY 11/17/23
azithromycin 250 mg tablet 250 mg PO NOON 05/15/24
cefuroxime axetil 500 mg tablet 500 mg PO BID 05/15/24
cyanocobalamin (vitamin B-12) 1,000 mcg tablet 2,000 mcg PO DAILY 05/15/24
donepezil 10 mg tablet 10 mg PO DAILY 05/15/24
fluoxetine 20 mg capsule 20 mg PO DAILY 05/15/24
levothyroxine 50 mcg tablet 50 mcg PO DAILY 05/15/24
trospium 60 mg capsule,extended release 24 hr 60 mg PO DAILYPRN PRN bladder issues 05/15/24
Review of Systems
-
History Source: Patient
Constitutional: Reports Fatigue and Chills
EENT: Reports No Symptoms
Respiratory: Reports Cough
Cardiac: Reports No Symptoms
Abdomen/GI: Reports Nausea and Vomiting
: Reports No Symptoms
Musculoskeletal: Reports No Symptoms
Skin: Reports No Symptoms
Neurological: Reports No Symptoms
Endocrine: Reports No Symptoms
Hematologic/Lymphatic: Reports No Symptoms
Psych: Reports No Symptoms
Physical Exam
Vital Signs
Vital Signs
Temp Pulse Resp BP Pulse Ox
99.9 F 81 16 138/49 96
05/15/24 18:24 05/15/24 17:41 05/15/24 17:41 05/15/24 17:38 05/15/24 18:00
Physical Exam
General: Well Developed, Well Nourished, No Apparent Distress, Comfortable and Conversant
HEENT: NormoCephalic, Moist mucous membranes and Atraumatic
Respiratory: Clear and Non Labored Respirations
Cardiac: S1/S2 and Regular Rhythm; No Murmur, Rub or Gallop
Breast: Deferred by me
GI: Soft, Non Tender, Non Distended and Normal Bowel Sounds; No Organomegaly
Rectal: Deferred by Provider
Genito-urinary: Deferred by me
Musculoskeletal: No Clubbing, No Cyanosis and No Edema
Skin: Warm and IV/Catheter Site; No Rash
Neuro: Awake, Alert, AO x 3 and Nonfocal/grossly intact
Psych: Calm and Intact Judgment/Insight
Laboratory Results
-
05/15/24 16:08
05/15/24 16:08
Laboratory Results
Lactic Acid 1.1 mmol/L (0.7-2.0) 05/15/24 18:08
Total Bilirubin 0.8 mg/dl (0.2-1.3) 05/15/24 16:08
AST 30 U/L (14-36) 05/15/24 16:08
ALT 25 U/L (0-35) 05/15/24 16:08
Alkaline Phosphatase 90 U/L (38-126) 05/15/24 16:08
Data Reviewed
-
Diagnostic Radiology: Report Reviewed by me (CXR: Chronic lung findings a new superimposed left lower lobe opacity favored to represent pneumonia. Diffuse osteopenia with chronic compression deformity of the L1 vertebral body.)
Medical Tests (Nuc Med, Echo, EKG etc): Report Reviewed by me (EKG: NORMAL SINUS RHYTHM)
Lab Data: Labs Reviewed by me
Impression/Plan
-
IMPRESSION/PLAN:
#pneumonia 2/2 influenza
CXR: Chronic lung findings a new superimposed left lower lobe opacity favored to represent pneumonia.
Diffuse osteopenia with chronic compression deformity of the L1 vertebral body.
EKG: NORMAL SINUS RHYTHM
Blood Cx: pending
- Admit to med/surg
- IV antibiotics
- supportive care
- sputum culture
#essential hypertension
- continue losartan
#hyperlipidemia
- continue simvastatin
#advanced dementia
- continue donepezil
#hypothyroidism
- continue levothyroxine
#overactive bladder
- continue trospium
#osteoporosis
Code status: full code
DVT prophylaxis: Lovenox Sq
--- NOTE | 2024-05-15 20:24 | W.PN.UPDATE ---
Update Note
Progress Note Update
This is an addendum to the H&P written by Camila Mckeon on 05/15/2024.� Patient seen and examined independently with [employer]
83-year-old female past medical history of hypertension, hyperlipidemia, dementia, hypothyroidism, overactive bladder, Osteoporosis, presenting with cough, generalized weakness, fevers and chills for past 4 to 5 days.� Diagnosed with influenza
yesterday and started on cefuroxime and azithromycin yesterday.
Chest x-ray shows chronic lung findings as well as a new superimposed left lower lobe opacity favored to represent pneumonia.� On 1.5 L oxygen oxygen.
Patient with influenza/postviral bacterial infection.� Check sputum culture.� Ceftriaxone/azithromycin.� Out of window for Tamiflu.
[2024-05-15] MEDS: LIPITOR 10 MG PO (22:29)
--- NOTE | 2024-05-15 22:37 | PTCARENOTE ---
Pt. arrived to unit from ED via stretcher to room 335 on . Patient was able to stand and pivot to bed. Patient AAOx2, disoriented to time. Bed alarm placed. On droplet precautions for testing +flu outpt. Latex allergy-band placed on patient,
signed placed outside of room. Oriented to unit. Call andrade within reach. Plan of care ongoing.
[2024-05-15] MEDS: TYLENOL 650 MG PO (23:00)
--- NOTE | 2024-05-16 02:52 | PTCARENOTE ---
Pt. bed alarm went off, this nurse immediately entered room. Patient requested to go to the bathroom. O2 off. Patient ambulated to bathroom with assist x1. Patient assisted back to bed. Pulse ox checked without o2-pulse ox read 89-91% on RA. O2
placed back on patient. Pulse ox now reading 95-97%. Plan of care ongoing.
[2024-05-16] MEDS: SYNTHROID 50 MCG PO (05:30)
[2024-05-16 06:36] LABS: Hematocrit 37.4 % (37.0-47.0); Hemoglobin 11.9 g/dL (12.0-16.0); Mean Corp Hgb Conc. 31.8 g/dL (33.0-37.0); Mean Platelet Volume 10.9 fL (7.4-10.4); Platelet Count 185 10^3/uL (130-400); Red Blood Cell Count 4.25 10^6/uL (4.20-5.40); Red Cell Dist. Width 14.8 % (11.5-14.5); White Blood Cell Count 6.7 10^3/uL (4.8-10.8)
[2024-05-16 07:05] LABS: Blood Urea Nitrogen 11 mg/dl (7-17); Calcium 8.9 mg/dl (8.4-10.2); Carbon Dioxide 29 mmol/L (22-30); Chloride 102 mmol/L (98-107); Estimated Creatinine Clearance 45 ml/min; Glucose 94 mg/dl (70-99); Sodium 136 mmol/L (135-145); eGFR > 60.00
[2024-05-16 07:20] VITALS: BP 156/74
[2024-05-16] MEDS: VITAMIN B-12 2000 MCG PO (07:21)
[2024-05-16] MEDS: PLAVIX 75 MG PO (07:21)
[2024-05-16] MEDS: COZAAR 50 MG PO (07:21)
[2024-05-16] MEDS: ARICEPT 10 MG PO (07:21)
[2024-05-16] MEDS: PROZAC 20 MG PO (07:21)
[2024-05-16] MEDS: TYLENOL 650 MG PO (09:05)
--- NOTE | 2024-05-16 12:51 | CM ---
Patient seen at bedside with
IA completed
MAJANO form explained & signed. In chart
Lives in a 2 story home with , 1st floor set up, 1 step to enter
Plof: Independent, no device
DME: Walker, wheelchair, shower chair
Denies HH, Outpatient PT with [facility] in past
Denies insecurities
PCP: Narendra Vences
Pharmacy: [facility]
PLAN: Home, no needs anticipated
to transport
--- NOTE | 2024-05-16 14:31 | W.DCSUMMARY ---
Discharge Summary
Discharge Data
Date of Admission: 05/15/24
Date of Discharge: 05/16/24
-
Pending Results: No
Hospital Course
Ms. Olvera is an 83-year-old female with a medical history of hypertension, hypothyroidism, overactive bladder, osteoporosis and dementia who presented with generalized weakness and cough that started approximately 6 days prior to arrival. She was
diagnosed with influenza but was outside of the treatment window for oseltamivir. She had an outpatient chest x-ray which showed possible left lower lobe pneumonia and so her primary care physician started her on cefuroxime and azithromycin.
However she threw up soon after taking her first dose of cefuroxime and became pale and lethargic for a moment, at which time she was brought to the hospital for further evaluation and management. Her lethargy after vomiting was likely due to
vasovagal event. Her mentation quickly covered to baseline and she had no further episodes of vomiting. During her hospitalization her vital signs have remained unremarkable other than occasional low-grade fevers. She was started on IV
antibiotics. She was initially put on oxygen via nasal cannula likely due to comfort but was easily able to be titrated to room air. She was breathing comfortably and saturating appropriately on room air even while ambulating. Her labs were
generally unremarkable. At time of hospital discharge she was hemodynamically stable. She will be discharged to home to complete a 7-day course of oral antibiotics. She will need close follow-up with her primary care physician after hospital
discharge.
Gen-AAOx3, NAD
HEENT-NC, AT, anicteric, clear oral mm
Neck-supple
CV-reg, no M, +S1/S2
Lungs-left lower lobe rhonchi
Abd-soft, NT, ND
Musculoskeletal-no edema, no deformity
Skin-warm and dry
Neuro-grossly non-focal
Psych-calm, cooperative
Discharge Plan
-
Patient Disposition: Home (Routine Discharge)
Diet: No restrictions
Activity: No restrictions
Activity Restrictions/Additional Instructions:
Ms. Olvera is an 83-year-old female with a medical history of hypertension, hypothyroidism, overactive bladder, osteoporosis and dementia who presented with generalized weakness and cough that started approximately 6 days prior to arrival. She was
diagnosed with influenza but was outside of the treatment window for oseltamivir. She had an outpatient chest x-ray which showed possible left lower lobe pneumonia and so her primary care physician started her on cefuroxime and azithromycin.
However she threw up soon after taking her first dose of cefuroxime and became pale and lethargic for a moment, at which time she was brought to the hospital for further evaluation and management. Her lethargy after vomiting was likely due to
vasovagal event. Her mentation quickly covered to baseline and she had no further episodes of vomiting. During her hospitalization her vital signs have remained unremarkable other than occasional low-grade fevers. She was started on IV
antibiotics. She was initially put on oxygen via nasal cannula likely due to comfort but was easily able to be titrated to room air. She was breathing comfortably and saturating appropriately on room air even while ambulating. Her labs were
generally unremarkable. At time of hospital discharge she was hemodynamically stable. She will be discharged to home to complete a 7-day course of oral antibiotics. She will need close follow-up with her primary care physician after hospital
discharge.
Referrals:
Narendra Vences DO [Family Provider] -
Prescriptions:
New
cefdinir 300 mg capsule
300 mg PO BID 6 Days Qty: 12 0RF
doxycycline hyclate 100 mg capsule
100 mg PO BID 6 Days Qty: 12 0RF
Continued
losartan 50 MG tablet
50 mg PO DAILY
simvastatin 20 MG tablet
20 mg PO HS
clopidogrel 75 mg Tablet
75 mg PO DAILY
donepezil 10 mg Tablet
10 mg PO DAILY
cyanocobalamin (vitamin B-12) 1,000 mcg Tablet
2,000 mcg PO DAILY
levothyroxine 50 mcg Tablet
50 mcg PO DAILY
fluoxetine 20 mg Capsule
20 mg PO DAILY
trospium 60 mg Capsule,Extended Release 24hr
60 mg PO DAILYPRN PRN (Reason: bladder issues)
Discontinued
azithromycin 250 mg Tablet
250 mg PO NOON
cefuroxime axetil 500 mg Tablet
500 mg PO BID
Discharge Orders:
Discharge Patient (As Directed); Ordered 05/16/24
Ordered By: Kendall Tejada
Discharge Date and Time
Print Language: ISRAELI
[2024-05-16 15:37] VITALS: BP 126/52
== END 2024-05-16 15:50 | disposition home or self-care (01) ==
LOC: 3 WEST ACU 20:15
PROVIDERS: Nurse Practitioner Family; Physician Assistant; ADMITTING PHYSICIAN Hospitalist; ATTENDING PHYSICIAN Internal Medicine; EMERGENCY PHYSICIAN Emergency Medicine; FAMILY PHYSICIAN Internal Medicine
DX: R53.1 Weakness (principal); R05.9 Cough, unspecified; R11.10 Vomiting, unspecified; R53.83 Other fatigue; R09.02 Hypoxemia; I10 Essential (primary) hypertension; E78.00 Pure hypercholesterolemia, unspecified; F03.90 Unspecified dementia, unspecified severity, without behavioral disturbance, psychotic disturbance, mood disturbance, and anxiety; M80.08XA Age-related osteoporosis with current pathological fracture, vertebra(e), initial encounter for fracture; E03.9 Hypothyroidism, unspecified; N32.81 Overactive bladder; Z79.02 Long term (current) use of antithrombotics/antiplatelets; Z90.49 Acquired absence of other specified parts of digestive tract; Z85.828 Personal history of other malignant neoplasm of skin; Z88.2 Allergy status to sulfonamides; Z91.040 Latex allergy status; Z79.899 Other long term (current) drug therapy; Z79.890 Hormone replacement therapy; Z90.710 Acquired absence of both cervix and uterus
CPT/HCPCS: 80048; 80053; 83605; 85025; 85027; 87040; 93005; 96374; 96375; 99284; G0378

== ENCOUNTER → 2025-02-12 09:40 | Outpatient (REF) | payer MEDICARE, OTHER, SELFPAY ==
[2025-02-12 10:56] LABS: Hematocrit 39.7 % (37.0-47.0); Hemoglobin 12.7 g/dL (12.0-16.0); Mean Corp Hgb Conc. 32.0 g/dL (33.0-37.0); Mean Corpuscular Volume 87.6 fL (81.0-99.0); Nucleated Red Blood Cells % 0 %; Platelet Count 329 10^3/uL (130-400); Red Cell Dist. Width 14.1 % (11.5-14.5)
[2025-02-12 10:58] LABS: INR 0.97; PT 13.4 Sec (11.4-14.6)
[2025-02-12 10:59] LABS: APTT 27.7 Sec (23.4-35.0)
[2025-02-12 11:09] LABS: ALT (SGPT) 21 U/L (0-35); AST (SGOT) 24 U/L (14-36); Albumin 4.0 g/dl (3.5-5.0); Alkaline Phosphatase 84 U/L (38-126); Blood Urea Nitrogen 18 mg/dl (7-17); Calcium 9.2 mg/dl (8.4-10.2); Carbon Dioxide 29 mmol/L (22-30); Chloride 102 mmol/L (98-107); Glucose 87 mg/dl (70-99); Potassium 4.6 mmol/L (3.5-5.1); Sodium 136 mmol/L (135-145); Total Protein 6.6 g/dl (6.3-8.2); eGFR > 60.00
[2025-02-12 11:56] LABS: Vitamin B12 > 1000 pg/ml (239-931)
== END ==
LOC: REG 09:40
PROVIDERS: FAMILY PHYSICIAN Internal Medicine
DX: Z51.81 Encounter for therapeutic drug level monitoring (principal); Z79.899 Other long term (current) drug therapy
CPT/HCPCS: 36415; 80053; 82607; 85025; 85610; 85730